=== PATIENT | female | born 1995 | race Caucasian/White ===

== ENCOUNTER 2018-04-23 16:31 | Emergency (ER) | payer MEDICAID ==
[~2018-04-23] VITALS: Ht 160 cm; Wt 57.6 kg
[2018-04-23 16:56] VITALS: Ht 160 cm; Wt 57.6 kg
[2018-04-23 20:54] VITALS: BP 111/72
== END 2018-04-23 20:50 | disposition home or self-care (01) ==
LOC: ED 16:31
DX: N61.0 Mastitis without abscess (principal); J45.909 Unspecified asthma, uncomplicated

== ENCOUNTER 2019-06-03 09:37 | Emergency (ER) | payer MEDICAID ==
[~2019-06-03] VITALS: Ht 160 cm; Wt 58.5 kg
[2019-06-03 09:46] VITALS: BP 101/67; Ht 160 cm; Wt 58.5 kg
== END 2019-06-03 11:22 | disposition home or self-care (01) ==
LOC: ED 09:37
DX: R05 Cough (principal); J34.89 Other specified disorders of nose and nasal sinuses
CPT/HCPCS: 87804